=== PATIENT | male | born 2005 | race Caucasian/White ===

== ENCOUNTER 2025-05-13 02:41 | Day surgery (SDC) | payer OTHER ==
[~2025-05-13] VITALS: Ht 177.8 cm; Wt 83.1 kg
[2025-05-13] VITALS (10 sets, daily range): BP systolic 107–132; BP diastolic 52–79; TEMP 97.5–101; O2SAT 85–98
[2025-05-13] MEDS ORDERED: ACET-910 PO (02:53)
[2025-05-13 03:32] LABS: BASO # 0.0 10^3/uL (0.0-0.2); BASO % 0.3 % (0.0-1.0); EOS # 0.4 10^3/uL (0.0-0.5); EOS % 2.3 % (0.0-3.0); LYMPH # 2.8 10^3/uL (1.5-5.0); LYMPH % 18.0 % (24.0-44.0); MONO # 1.3 10^3/uL (0.0-0.8); MONO % 8.1 % (2.0-8.0); NEUTROPHILS # 10.9 10^3/uL (1.5-8.5); NEUTROPHILS % 70.9 % (36.0-66.0); PLATELET COUNT, AUTOMATED 299 10^3/uL (150-450)
[2025-05-13 03:35] LABS: KETONE, URINE AUTO RFX NEGATIVE (NEGATIVE); LEUKOCYTE ESTERASE UR AUTO RFX NEGATIVE (NEGATIVE); NITRITE, URINE AUTO RFX NEGATIVE (NEGATIVE); RBC, URINE AUTO RFX 0 /HPF (0-3); SQUAM EPITHELIAL CELL UR AURFX 0 /HPF (0-6); WBC, URINE AUTO RFX 0 /HPF (0-3)
[2025-05-13] MEDS: ONDANSETRON 4MG/2ML VIAL IV ONE (04:00)
[2025-05-13] MEDS: MORPHINE 4 MG/ML 1 ML VIAL IV PRN (04:00)
[2025-05-13 04:17] LABS: ALT/SGPT 19 U/L (7.0-40); AST/SGOT 26 U/L (<34); CALCIUM LEVEL 9.5 MG/DL (8.5-10.1); CARBON DIOXIDE LEVEL 30 MMOL/L (20-31); CHLORIDE LEVEL 102 MMOL/L (98-107); CREATININE FOR GFR 0.88 MG/DL (0.70-1.30); GLOMERULAR FILTRATION RATE > 90.0 (>60); POTASSIUM SERUM 4.2 MMOL/L (3.5-5.1); SODIUM LEVEL 141 MMOL/L (136-145)
[2025-05-13] MEDS ORDERED: ISOVUE-370 76% 100 ML VIAL As Ordered ONE (04:26)
[2025-05-13] MEDS: PIPERACILLIN/TAZOBACTAM SOD 3.375 GM in DEXTROSE 5% (D5W) ADV/MINI-BAG 50 ML IV ONE (05:12)
[2025-05-13] MEDS ORDERED: LIDOCAINE 2% 100 MG/5 ML SDV (FOR ANES.) As Ordered ONE (06:07)
[2025-05-13] MEDS ORDERED: ROCURONIUM BROMIDE 50MG/5ML VIAL As Ordered ONE (06:07)
[2025-05-13] MEDS ORDERED: MIDAZOLAM INJ 2 MG/2 ML VIAL As Ordered ONE (06:08)
[2025-05-13] MEDS ORDERED: SUCCINYLCHOLINE 100MG/5ML SYRINGE As Ordered ONE (06:12)
[2025-05-13] MEDS ORDERED: ONDANSETRON 4MG/2ML VIAL As Ordered ONE (06:29)
[2025-05-13] MEDS ORDERED: dexAMETHasone 4 MG/ML 1 ML VIAL As Ordered ONE (06:29)
[2025-05-13] MEDS ORDERED: KETOROLAC 30 MG/ML 1 ML VIAL As Ordered ONE (06:41)
[2025-05-13] MEDS ORDERED: SUGAMMADEX SODIUM 200 MG/2 ML VIAL As Ordered ONE (06:41)
[2025-05-13] MEDS: ONDANSETRON 4MG/2ML VIAL IV PRN ×2 (08:58→20:32)
[2025-05-13] MEDS: MORPHINE 2 MG/ML 1 ML VIAL IV PRN (08:58)
[2025-05-13] MEDS: SENNOSIDES/DOCUSATE SODIUM 8.6 MG/50MG TAB PO SCH (09:00)
[2025-05-13] MEDS: HYDROMORPHONE HCL 0.5 MG/0.5 ML SYRINGE IV PRN (09:19)
[2025-05-13] MEDS: PIPERACILLIN/TAZOBACTAM SOD 3.375 GM in DEXTROSE 5% (D5W) ADV/MINI-BAG 50 ML IV SCH (11:14)
[2025-05-13] MEDS: KETOROLAC 30 MG/ML 1 ML VIAL IV PRN (12:14)
[2025-05-13] MEDS ORDERED: HOME MED LIST COMPLETE! XX SCH (14:55)
[2025-05-13] MEDS: NS (Normal Saline) 0.9% 1,000 ML IV ONE (21:13)
[2025-05-14] VITALS (7 sets, daily range): BP systolic 105–128; BP diastolic 51–72; TEMP 99.5–100.7; O2SAT 92–93
[2025-05-14] MEDS: ACETAMINOPHEN 325 MG TAB PO PRN (00:24)
[2025-05-14 05:53] LABS: PLATELET COUNT, AUTOMATED 220 10^3/uL (150-450)
[2025-05-14] MEDS ORDERED: AUGM500T34 PO (06:42)
[2025-05-14] MEDS ORDERED: HYDR-3715 PO (06:42)
== END 2025-05-14 10:15 | disposition home or self-care (01) ==
LOC: M ED 02:41 → M SDC 02:42 → M MS4PR 10:50 → M SDC 05-14 10:15
PROVIDERS: ATTEND Surgery
DX: K35.80 Unspecified acute appendicitis (principal)
CPT/HCPCS: 36415; 44970; 74177; 80048; 80076; 81001; 83690; 85025; 85027; 88304; 96361; 96365; 96366; 96375; 96376; 99284; J0330; J0665; J1100; J1171; J1885; J2250; J2405; J2543; J3010; Q9967

== ENCOUNTER 2025-05-14 23:35 | Emergency (ER) | payer OTHER ==
[~2025-05-14] VITALS: Ht 177.8 cm; Wt 83.1 kg
[~2025-05-14 23:35] MED LIST: ACET-910 PO; AUGM500T34 PO; HYDR-3715 PO
[2025-05-14 23:39] VITALS: BP 130/67; TEMP 97.5; O2SAT 98
[2025-05-15 00:52] LABS: BASO # 0.0 10^3/uL (0.0-0.2); BASO % 0.2 % (0.0-1.0); EOS # 0.1 10^3/uL (0.0-0.5); EOS % 0.6 % (0.0-3.0); LYMPH # 1.2 10^3/uL (1.5-5.0); LYMPH % 9.6 % (24.0-44.0); MONO # 1.1 10^3/uL (0.0-0.8); MONO % 8.6 % (2.0-8.0); NEUTROPHILS # 10.4 10^3/uL (1.5-8.5); NEUTROPHILS % 80.6 % (36.0-66.0); PLATELET COUNT, AUTOMATED 248 10^3/uL (150-450)
[2025-05-15 01:24] LABS: ALT/SGPT 32 U/L (7.0-40); AST/SGOT 29 U/L (<34); CALCIUM LEVEL 8.9 MG/DL (8.5-10.1); CARBON DIOXIDE LEVEL 29 MMOL/L (20-31); CHLORIDE LEVEL 103 MMOL/L (98-107); CREATININE FOR GFR 0.90 MG/DL (0.70-1.30); GLOMERULAR FILTRATION RATE > 90.0 (>60); POTASSIUM SERUM 3.9 MMOL/L (3.5-5.1); SODIUM LEVEL 141 MMOL/L (136-145)
[2025-05-16] MEDS ORDERED: IBUP80TA PO (09:20)
== END 2025-05-15 02:03 | disposition left against medical advice (07) ==
LOC: M ED 23:35
DX: Z53.21 Procedure and treatment not carried out due to patient leaving prior to being seen by health care provider (principal)

== ENCOUNTER 2025-05-16 09:05 | Emergency (ER) | payer OTHER ==
[~2025-05-16] VITALS: Ht 177.8 cm; Wt 82.2 kg
[2025-05-16] MEDS ORDERED: IBUP80TA PO (09:20)
[2025-05-16 11:23] LABS: KETONE, URINE AUTO RFX 1+ mg/dL (NEGATIVE); LEUKOCYTE ESTERASE UR AUTO RFX NEGATIVE (NEGATIVE); MUCUS, URINE RFX SMALL (NEGATIVE); NITRITE, URINE AUTO RFX NEGATIVE (NEGATIVE); RBC, URINE AUTO RFX 2 /HPF (0-3); SQUAM EPITHELIAL CELL UR AURFX 0 /HPF (0-6); WBC, URINE AUTO RFX 4 /HPF (0-3)
[2025-05-16] MEDS: NS (Normal Saline) 0.9% 1,000 ML IV ONE (11:36)
[2025-05-16 11:48] LABS: BASO # 0.0 10^3/uL (0.0-0.2); BASO % 0.3 % (0.0-1.0); EOS # 0.4 10^3/uL (0.0-0.5); EOS % 4.0 % (0.0-3.0); LYMPH # 1.2 10^3/uL (1.5-5.0); LYMPH % 12.7 % (24.0-44.0); MONO # 1.2 10^3/uL (0.0-0.8); MONO % 12.3 % (2.0-8.0); NEUTROPHILS # 6.8 10^3/uL (1.5-8.5); NEUTROPHILS % 70.4 % (36.0-66.0); PLATELET COUNT, AUTOMATED 323 10^3/uL (150-450)
[2025-05-16 12:29] LABS: ALT/SGPT 27 U/L (7.0-40); AST/SGOT 21 U/L (<34); CALCIUM LEVEL 8.8 MG/DL (8.5-10.1); CARBON DIOXIDE LEVEL 29 MMOL/L (20-31); CHLORIDE LEVEL 104 MMOL/L (98-107); CREATININE FOR GFR 0.74 MG/DL (0.70-1.30); GLOMERULAR FILTRATION RATE > 90.0 (>60); POTASSIUM SERUM 3.9 MMOL/L (3.5-5.1); SODIUM LEVEL 143 MMOL/L (136-145)
[2025-05-16 13:20] VITALS: TEMP 98.8
[2025-05-16 13:21] VITALS: O2SAT 97
[2025-05-16 13:24] VITALS: BP 127/79
== END 2025-05-16 13:28 | disposition home or self-care (01) ==
LOC: M ED 09:05
DX: G89.18 Other acute postprocedural pain (principal)

== ENCOUNTER → 2025-06-03 | Outpatient (CLI) | payer OTHER ==
[~2025-06-03] MED LIST changes: +IBUP80TA PO; +ISOVUE-300 61% 100 ML VIAL As Ordered ONE; +LIDOCAINE 1% MDV 20 ML VIAL As Ordered ONE; +TRIAMCINOLONE ACETONIDE SUSP 40MG/ML 1ML VIAL As Ordered ONE
== END ==
LOC: M RAD 14:30
PROVIDERS: ATTEND Physician Assistant Surgical
DX: S73.121A Ischiocapsular ligament sprain of right hip, initial encounter (principal); X58.XXXA Exposure to other specified factors, initial encounter; Y92.9 Unspecified place or not applicable
CPT/HCPCS: 20610; 77002; J3301; Q9967